=== PATIENT | female | born 1995 | race African-American/Black ===

== ENCOUNTER 2020-11-21 08:52 | Outpatient (CLI) | payer OTHER ==
[2020-11-21 10:04] VITALS: BP 96/66
--- NOTE | 2020-11-21 10:04 | SLEEP CARE CONSULTATION ---
Information from patient questionnaire entered by Joya Colunga. I have reviewed and concur with the information entered by Joya Colunga. This document represents the service I personally performed and the decisions made by me, Carolina Schulz ARNP. History of Present Illness Service Date and Time: 11/21/2020 0852 Reason for Visit: New patient Chief Complaint: reports: Unrefreshed sleep, Snoring, Excessive daytime sleepiness. denies: Observed pauses in breathing, Frequent awakenings at night Date of Onset: 1 year Usual bedtime: 10 pm Time it takes to fall asleep: 45 - 60 minutes Snores at night: Yes Observed to quit breathing while asleep: No Sleeps alone due to snoring: Yes (sometimes) Number of times waking at night: sometimes once Reasons for waking at night: reports: Choking, Other (coughing). denies: Gasping for air Toss, Turn, or Twitch while sleeping: Yes Recalls having dreams: Yes (here and there) Usually gets out of bed at: 7 am Feels refreshed in the morning: No Morning headache: Yes (sometimes, resolves after shower; 2 times a week) Sleepy or fatigued during the day: Yes Ever fallen asleep while driving: Yes (drowsy driving; no accidents) Takes day naps: Yes (sometimes; 2-3 times a week for 2-4 hours) Dreams during day naps: No Prior sleep studies: No Additional HPI information: I had the pleasure of seeing WALLY ROQUE today regarding the possibility of her having a sleep disorder. Her current complaints are excessive daytime sleepiness, snoring and unrefreshed sleep. She states her has told her that her snoring is getting louder and she is coughing in her sleep. She has not seen any pauses in breathing. She does not wake up feeling rested. She states she cannot ever remember when she has woke up feeling rested. She states during the day she can be very sleepy and will nod off if gets quiet. She will wake up with a headache two times a week that usually is resolved by the time she is done taking her morning shower. She states lost of her aunts and uncles have sleep apnea. Both of her parents snore but have not been evaluated. 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 Patient is and lives in [place]. Have you smoked in the past 12 months: No (vapes occasionally) Cigarettes per day (20/pack): 5 Years of smokin Quit date: 2019 Smoking Pack Years: 0.4 Alcohol use: No Caffeine use: Yes Caffeine amount and frequency: 1 drink maybe twice a week Family History Family history of sleep disordered breathing: Yes Family Hx Sleep Apnea: Mother: Snoring, Sleep apnea - Untreated, Father: Snoring, Sleep apnea - Untreated Allergies and Home Medications Drug allergies reviewed: Yes (NKDA) Home medication list reviewed: Yes Allergy and home medication list: Lexapro Probiotics Flonase Review of Systems Weight gain over past 5 years: 45 Cardiovascular: reports: chest pain. denies: high blood pressure Gastrointestinal: denies: heartburn Neurological: reports: headaches Psychiatric: reports: anxiety, depression. denies: Attention Deficit Hyperactivity, mood disorder Ear/Nose/Throat: reports: wisdom teeth removed. denies: injury to nose, tonsillectomy Endocrine: reports: sluggishness. denies: thyroid disease Musculoskeletal: reports: back pain Immunologic: denies: allergies to food or environment Physical Exam Blood Pressure: 96/66 Cuff size: wrist Heart Rate: 70 O2 Saturation: 98 Height: 5 ft 5 in Weight: 194 lb Body Mass Index: 32.3 BMI Classification: Obese Neck circumference: 13.75 (inches) Nostrils: patent to airflow Mouth and throat: narrow oropharynx Soft palate: long Hard palate: normal Uvula visualization: 25% Mallampati Class III Tongue: enlarged in size with teeth burton on lateral edges Tonsils: small Neck: normal w/o lymphadenopathy or thyromegaly Heart: regular rate and rhythm Lungs: clear bilaterally Impression and Plan 1. Suspected Obstructive Sleep Apnea-Hypopnea Syndrome, as suggested by a history of loud and irregular snoring, gasping or choking in sleep, morning headache, unrefreshed sleep, cognitive impairment, and excessive daytime sleepiness. Narrow oropharynx and obesity are common predisposing factors for obstructive sleep apnea-hypopnea syndrome. I recommend proceeding to polysomnography to confirm the diagnosis and to assess severity. If the patient has significant sleep disordered breathing, a manual CPAP titration study will also be performed to find the optimal treatment pressure. I informed the patient of what the sleep studies involve and after some discussion, obtained agreement to proceed. The pathophysiology of obstructive sleep apnea-hypopnea syndrome was discussed with the patient and health risks of cardiovascular and cerebrovascular disease if not treated. AAS brochure for obstructive sleep apnea-hypopnea syndrome given and reviewed. Risks of drowsy driving discussed in detail and patient advised to avoid long distance driving and to crop puller at the first sign of drowsiness. Patient agreed to plan. * Schedule polysomnography +- manual CPAP titration study and return in 1-2 weeks after the study to discuss result and initiate therapy. * Avoid long distance driving or driving when feeling sleepy. * Avoid alcohol, sedative and muscle relaxant around bedtime. * Attempt to lose weight. * Review instructions provided by trained office staff on how to prepare for the sleep study. * Return for follow-up after sleep study completed. Counseling Topics: Weight loss health impact Visit Type: In Office Time Spent with Patient (minutes): 30 Provider Statement: I spent 100% of the Face to Face Visit with the patient with greater than 50% spent counseling the patient and coordination of care.
== END 2020-11-21 08:53 | disposition home or self-care (01) ==
LOC: SC 08:52
PROVIDERS: ATTEND Nurse Practitioner Family
DX: G47.10 Hypersomnia, unspecified (principal); R51.9 Headache, unspecified; R06.83 Snoring; G47.8 Other sleep disorders; R41.89 Other symptoms and signs involving cognitive functions and awareness; E66.9 Obesity, unspecified; Z68.32 Body mass index [BMI] 32.0-32.9, adult
CPT/HCPCS: 99203; 99212

== ENCOUNTER 2020-12-25 11:28 | Outpatient (CLI) | payer OTHER ==
--- NOTE | 2020-12-25 11:36 | SLEEP CARE CONSULTATION ---
Information from patient questionnaire entered by Judith Burger. I have reviewed and concur with the information entered by Judith Burger. This document represents the service I personally performed and the decisions made by , Carolina Schulz ARNP. History of Present Illness Service Date and Time: 12/25/2020 1120 Initial [place] Sleepiness Scale score: 15 (in 2020) Current [place] Sleepiness Scale score: 13 Additional HPI information: WALLY ROQUE returns via video telehealth visit for follow up and results of the recently performed polysomnography at [facility]. The patient was informed of the following findings: No significant sleep disordered breathing with an average AHI of 1.4 and rianna oxygen saturation of 88%. Patient has light snoring. I explained the pathophysiology behind obstructive sleep apnea. Patient does not have sleep apnea and was advised how weight gain could increase the risk of developing sleep apnea in the future. I strongly encouraged the patient to lose weight. Patient has light snoring. Snoring can be reduced by weight loss. Weight loss is best achieved with diet consult. Patient instructed to contact PCP for referral. Snoring can also be treated with an oral appliance from a dentist. Advised to check insurance coverage. In addition, an ENT evaluation can be do to see if other treatment is indicated. Patient counseled not drink alcohol less than 4 hours before bedtime as it can increase snoring and apnea. Patient was cautioned about risks of drowsy driving until sleepiness symptoms resolve. Sleep Study - Results Type of Sleep Study: Polysomnography Prior sleep studies: Yes Year and Where: [address] [facility] Polysomnography/Home Sleep Study results: Interpretation: In-laboratory Attended Nocturnal Polysomnography. The patient had good sleep efficiency. The sleep architecture was normal. Respiratory monitoring showed no significant sleep disordered breathing (AHi = 1.4) or hypoxia (rianna oxygen saturation of 88.0% and only 0.9% of the total sleep time spent with oxygen saturation below normal). The patient slept adequately in supine position. Snoring was infrequent and light in intensity. There was no significant periodic leg movement of sleep. Cardiac rhythm was normal sinus rhythm. No abnormal behavior (parasomnia) observed during the night. Allergies and Home Medications Home medication list reviewed: Yes Allergy and home medication list: Wellbutrin Review of Systems Review of systems same as previous: Yes (no changes) Physical Exam Vital signs obtained and entered by: telehealth visit to limit exposure during covid pandemic Height: 5 ft 5 in Impression and Plan Snoring but no significant sleep disordered breathing. Patient advised that often weight loss will reduce snoring as well as apnea risk. An oral appliance can also be used for snoring. This would require a dental consultation. Patient cautioned not to use other online appliances as can cause bite issues. A list of accredited dentists in [facility] and one local dentist who makes oral appliances is available in office. Patient is advised to check if insurance will cover. An ENT consult can also be helpful to determine if any other treatment is an option. * Attempt to lose weight * Avoid alcohol consumption near bedtime * The patient is cautioned about driving until sleepiness is completely resolved. * Return as needed. Counseling Topics: Weight loss health impact Visit Type: Telehealth Video Video Type: EARNESTee Patient Location: Home Location of Provider: Office Patient agrees and consents to this telehealth visit type: Yes Patient agrees to have their insurance billed: Yes Time Spent with Patient (minutes): 10 Provider Statement: I spent 100% of the Telehealth Video Call with the patient with greater than 50% spent counseling the patient and coordination of care.
== END 2020-12-25 11:29 | disposition home or self-care (01) ==
LOC: SC 11:28
PROVIDERS: ATTEND Nurse Practitioner Family
DX: R06.83 Snoring (principal)

== ENCOUNTER 2021-01-06 10:50 | Outpatient (CLI) | payer OTHER | END 2021-01-06 10:51 | disposition home or self-care (01) | LOC: DI 10:50 | PROVIDERS: ATTEND Family Medicine | DX: R55 Syncope and collapse (principal) | CPT/HCPCS: 93306 ==